=== PATIENT | male | born 1950 | race American Indian/Alaskan Native ===

== ENCOUNTER 2017-02-01 08:26 | Day surgery (SDC) | payer MEDICARE, OTHER ==
[~2017-02-01 08:26] MED LIST: ANCEF/STERILE WATER 2 GM/20 ML 2 GM/20 ML SYRINGE IV NR; NACL 0.9% 1000 ML 1,000 ML IV SCH
[2017-02-01 09:41] LABS: Basophils % (Auto) 0.5 % (0.0-1.8); Eosinophils % (Auto) 1.2 % (0.0-4.3); Hemoglobin 13.4 gm/dl (11.8-15.2); Mean Corpuscular HGB Conc 33 % (32-34); Mean Corpuscular Hemoglobin 29 pg (28-32); Mean Corpuscular Volume 90 fl (84-94); Platelet Count 181 K/mm3 (140-440); Red Blood Count 4.54 M/mm3 (3.65-5.03); White Blood Count 6.9 K/mm3 (4.5-11.0)
[2017-02-01 09:46] LABS: Anion Gap 15 mmol/L; BUN/Creatinine Ratio 16; Blood Urea Nitrogen 16 mg/dL (9-20); Calcium 8.5 mg/dL (8.4-10.2); Carbon Dioxide 26 mmol/L (22-30); Chloride 103.7 mmol/L (98-107); Glucose 103 mg/dL (75-100); Potassium 4.3 mmol/L (3.6-5.0); Sodium 140 mmol/L (137-145)
--- NOTE | 2017-02-01 09:58 | Anesthesia Consultation ---
Anesthesia Consult and Med Hx Date of service: 02/01/17 - Airway Anesthetic Teeth Evaluation: Good ROM Head & Neck: Adequate Mental/Hyoid Distance: Adequate Mallampati Class: Class II Intubation Access Assessment: Probably Good - Pulmonary Exam CTA: Yes - Cardiac Exam Cardiac Exam: RRR - Pre-Operative Health Status ASA Pre-Surgery Classification: ASA2 Proposed Anesthetic Plan: MAC - Pulmonary Hx Asthma: Yes - Cardiovascular System Hx Heart Attack/AMI: No Hx Peripheral Vascular Disease: Yes - Central Nervous System Hx Psychiatric Problems: No - Hematic Hx Anemia: No Hx Sickle Cell Disease: No - Other Systems Hx Cancer: No
--- NOTE | 2017-02-01 09:58 | Anesthesia Day of Surgery ---
Anesthesia Day of Surgery - Day of Surgery Patient Examined: Yes Patient H&P Reviewed: Yes Patient is NPO: Yes
[2017-02-01 10:48] LABS: INR 0.98 (0.87-1.13)
[2017-02-01 10:49] LABS: Partial Thromboplastin Time 31.1 Sec. (24.2-36.6)
[2017-02-01] MEDS ORDERED: NACL 0.9% 500 ML 500 ML IV SCH (11:00)
[2017-02-01] MEDS ORDERED: SUBLIMAZE ONE (12:00)
[2017-02-01] MEDS ORDERED: VERSED ONE (12:00)
[2017-02-01] MEDS ORDERED: DIPRIVAN 10 MG/ML IV ONE ×4 (12:01)
[2017-02-01] MEDS ORDERED: HEPARIN/NS 5000 UNIT/500ML(CATH LAB) 500 ML IR ONE (13:16)
[2017-02-01] MEDS ORDERED: XYLOCAINE 2% INFILTRATI ONE (13:16)
--- NOTE | 2017-02-01 13:48 | Short Stay Summary ---
Short Stay Documentation Date of service: 02/01/17 - History Principal diagnosis: PVD with claudication H&P: obtained from office - Allergies and Medications Current Medications: Allergies No Known Allergies Allergy (Verified 02/24/16 10:48) Home Medications Medication Instructions Recorded Confirmed Last Taken Type Montelukast [Singulair] 10 mg PO QPM 02/24/16 02/01/17 01/30/17 History Multivitamin No.44/Vit D3/K 1 each PO QDAY 02/24/16 02/01/17 01/31/17 History [Multivitamins Softgels] Cholecalciferol (Vitamin D3) 5,000 unit PO DAILY 02/01/17 02/01/17 01/30/17 History [Vitamin D3] Active Medications Cefazolin Sodium (Ancef/Sterile Water 2 Gm/20 Ml) 2 gm in 20 mls @ 80 mls/hr IV PREOP NR PRN Reason: Protocol Stop: 02/01/17 21:00 Sodium Chloride (Nacl 0.9% 500 Ml) 500 mls @ 50 mls/hr IV DIRECT YONY Last Admin: 02/01/17 10:30 Dose: 50 mls/hr - Brief post op/procedure progress note Date of procedure: 02/01/17 Pre-op diagnosis: PVD with claudication left leg Post-op diagnosis: same Procedure: LLE angio Anesthesia: local Surgeon: MEÑO GREY Estimated blood loss: none Condition: stable - Disposition Condition at discharge: Good Disposition: [id number] TO HOME OR SELFCARE Short Stay Discharge Plan Activity: advance as tolerated Weight Bearing Status: Weight Bear as Tolerated Diet: regular Wound: keep clean and dry, per your surgeon's advice Follow up with: MEÑO GREY MD [Staff Physician] - 7 Days
--- NOTE | 2017-02-01 13:52 | Operative Report ---
Operative Report Operative Report: EXAM: LEFT LOWER EXTREMITY ANGIOGRAM CLINICAL INDICATION: PATIENT WITH A HISTORY OF PERIPHERAL VASCULAR DISEASE WITH CLAUDICATION OF THE LEFT LEG DATE: 02/01/2017 PROCEDURE: Following an explanation of the risks, benefits and alternatives; written informed consent was obtained. The patient was brought to the injury graphic suite and placed in supine position on the examination table. Initial ultrasound evaluation of the right groin demonstrated a patent right common femoral artery. The right groin was prepped and draped in the usual sterile fashion. 1% lidocaine was used for anesthesia. Under ultrasound guidance, the right common femoral artery was cannulated with a 7 cm 21-gauge needle. A 0.035 guidewire was advanced centrally under fluoroscopy. The needle was removed and a micro-sheath placed. The 0.018 guidewire was exchanged for a 0.035 guidewire and the micro-sheath exchanged for a 5 [place] vascular sheath. A 5 [place] Omni flush catheter was advanced over the guidewire to the distal abdominal aorta. Angiography was performed in the distal abdominal aorta. The distal abdominal aorta is widely patent. Bilateral common iliac, internal iliac and external iliac arteries are widely patent. The bifurcation was crossed using the Omni flush catheter and 0.035, guidewire and the Omni flush catheter advanced into the left external iliac artery. Angiography was performed which demonstrates a widely patent left common femoral artery, left profunda and proximal left superficial femoral artery. The Omni flush catheter was advanced into the superficial femoral artery and additional angiographic imaging obtained to the feet. The superficial femoral artery is patent throughout its course. The popliteal artery is patent throughout its course however, scattered areas of atherosclerotic disease are present within the midportion of popliteal artery without flow limiting stenosis. There is widely patent tibioperoneal trunk. The posterior tibial artery is patent with foot. The anterior tibial artery is patent to the foot. The peroneal artery is diminutive and is occluded in the mid and distal portions. At this point, the catheters, guidewires and she's were removed and hemostasis achieved in the right groin using a Perclose closure device and manual compression. Sterile dressing was then applied. The patient tolerated the procedure well. There were no immediate post procedure complications. Sedation was performed by anesthesia services. Continuous cardiopulmonary monitoring was utilized. IMPRESSION: 1) Left lower extremity angiogram as described with scattered areas of atherosclerotic plaque in the popliteal fossa without hemodynamically significant stenosis from the aorta to the tibial vessels.
[2017-02-01 15:32] VITALS: BP 159/83
--- NOTE | 2017-02-02 16:31 | Vascular Lab Report ---
MISCELLANEOUS VESSEL IDENTIFICATION: COMMENTS ON THE SCAN: The right common femoral artery was identified and under real-time ultrasound guidance was cannulated. IMPRESSION: Successful ultrasound guided arterial cannulation.
== END 2017-02-01 15:40 | disposition home or self-care (01) ==
LOC: CATHLABREC 08:26
PROVIDERS: ATTEND Radiology Diagnostic Radiology
DX: I70.213 Atherosclerosis of native arteries of extremities with intermittent claudication, bilateral legs (principal); E11.51 Type 2 diabetes mellitus with diabetic peripheral angiopathy without gangrene; Z79.01 Long term (current) use of anticoagulants; Z87.891 Personal history of nicotine dependence; Z95.820 Peripheral vascular angioplasty status with implants and grafts; Z80.1 Family history of malignant neoplasm of trachea, bronchus and lung
CPT/HCPCS: 36247; 36415; 75625; 75710; 76937; 80048; 85025; 85610; 85730; C1760; C1769; C1887; J1644; J2250; J2704; J3010; Q9967